=== PATIENT | female | born 1945 | race Hispanic/Latino ===

== ENCOUNTER 2019-11-11 10:36 | Outpatient (CLI) | payer MEDICARE ==
--- NOTE | 2019-11-11 13:11 | MMO ---
Bilateral MAMMO Bilat Screen [facility]. CLINICAL HISTORY: Patient is 74 years old and is seen for screening. The patient has no family history of breast cancer. The patient has no personal history of cancer. VIEWS: The views performed were: bilateral craniocaudal with tomosynthesis and bilateral mediolateral oblique with tomosynthesis. FILMS COMPARED: The present examination has been compared to prior imaging studies performed at [facility] on 01/22/2008, 01/23/2009, 02/21/2010 and 06/30/2018. This study has been interpreted with the assistance of computer-aided detection. MAMMOGRAM FINDINGS: There are scattered fibroglandular densities. There are stable benign appearing calcifications seen in both breasts. There are no suspicious masses, suspicious calcifications, or new areas of architectural distortion. IMPRESSION: THERE IS NO MAMMOGRAPHIC EVIDENCE OF MALIGNANCY. A ROUTINE FOLLOW-UP MAMMOGRAM IN 1 YEAR IS RECOMMENDED. THE RESULTS OF THIS EXAM WERE SENT TO THE PATIENT. ACR BI-RADS Category 2 - Benign finding MAMMOGRAPHY NOTE: 1. A negative mammogram report should not delay a biopsy if a dominant of clinically suspicious mass is present. 2. Approximately 10% to 15% of breast cancers are not detected by mammography. 3. Adenosis and dense breasts may obscure an underlying neoplasm. Reported by: SARA CHOUDHURY MD Electonically Signed: [id number]
--- NOTE | 2019-11-11 14:05 | BD ---
Exam: DEXA Bone Density 11/11/19 INDICATIONS: Postmenopausal screening. Lumbar Spine: BMD (g/cm2) T-SCORE L1 0.669 -2.9 L2 0.713 -2.9 L3 0.736 -3.2 L4 0.804 -2.3 L1-L4 0.732 -2.9 Femoral Neck: 0.513 -3.0 Total Femur: 0.716 -1.9 Impression: Bone mineral density of the lumbar spine and femoral neck both indicate osteoporosis. POS: AGW
== END 2019-11-11 10:37 | disposition home or self-care (01) ==
LOC: BICMAMMO 10:36 → EDUNIT# 11:00
PROVIDERS: ATTEND Family Medicine
DX: Z12.31 Encounter for screening mammogram for malignant neoplasm of breast (principal); Z13.820 Encounter for screening for osteoporosis; Z78.0 Asymptomatic menopausal state; M81.0 Age-related osteoporosis without current pathological fracture
CPT/HCPCS: 77063; 77067; 77080

== ENCOUNTER 2020-12-07 12:42 | Outpatient (CLI) | payer MEDICARE | END 2020-12-07 12:43 | disposition home or self-care (01) | LOC: BICMAMMO 12:42 | PROVIDERS: ATTEND Family Medicine | DX: Z12.31 Encounter for screening mammogram for malignant neoplasm of breast (principal) | CPT/HCPCS: 77063; 77067 ==

== ENCOUNTER 2021-12-05 14:18 | Outpatient (CLI) | payer MEDICARE | END 2021-12-05 14:19 | disposition home or self-care (01) | LOC: ULT 14:18 | PROVIDERS: ATTEND Family Medicine | DX: I27.20 Pulmonary hypertension, unspecified (principal); M79.89 Other specified soft tissue disorders; I08.1 Rheumatic disorders of both mitral and tricuspid valves | CPT/HCPCS: 93306 ==

== ENCOUNTER 2022-11-08 11:45 | Inpatient (IN) | payer MEDICARE ==
[~2022-11-08 11:45] MED LIST: Iopamidol 370 76% 100 ML VIAL ONE
[2022-11-08 11:57] LABS: #Basophils 0.1 thou/uL (0.0-0.2); #Eosinphils 0.3 thou/uL (0.0-0.7); #Monocytes 0.6 thou/uL (0.11-0.59); #Neutrophils 3.9 thou/uL (1.40-6.50); %Basophils 0.7 % (0.0-1.0); %Eosinophils 3.7 % (0.0-10.0); %Lymphocytes 41.8 % (21.0-51.0); %Monocytes 6.8 % (0.0-10.0); %Neutrophils 45.9 % (42.0-75.0); Hemoglobin 11.3 g/dL (12.0-16.0); Mean Corpuscular HGB CONC 32.9 g/dL (32.0-36.0); Mean Corpuscular Hemoglobin 29.4 pg (27.0-31.0); Mean Corpuscular Volume 89.1 fl (78.0-98.0); Mean Platelet Volume 10.9 fL (7.4-10.4); Platelet Count 157 10x3/uL (130-400); RBC Distribution Width 13.2 % (11.5-14.5); Red Blood Cell (RBC) Count 3.85 mill/uL (4.20-5.40); White Blood Cell (WBC) Count 8.5 10x3/uL (4.8-10.8)
[2022-11-08 12:07] LABS: INR-International Normal Ratio 1.2; Prothrombin Time 15.3 sec (12.0-14.7)
[2022-11-08 12:12] LABS: PTT 166.4 sec (22.9-36.1)
[2022-11-08] MEDS ORDERED: Nitroglycerin 50 MG/250 ML BOT 250 ML ONE (12:13)
[2022-11-08 12:14] LABS: ALT (SGPT) 16 U/L (8-55); AST (SGOT) 16 U/L (5-34); Albumin 3.3 g/dL (3.4-4.8); Alkaline Phosphatase 76 U/L (40-110); Anion Gap 13 mmol/L (10-20); BUN (Urea Nitrogen) 13 mg/dL (9.8-20.1); Bilirubin, Total 0.4 mg/dL (0.2-1.2); Calc. Creatinine Clearance 0 mL/min (70-130); Calcium 8.2 mg/dL (7.8-10.44); Carbon Dioxide 20 mmol/L (23-31); Chloride 110 mmol/L (98-107); Estimated GFR 56; Globulin 2.7 g/dL (2.4-3.5); Glucose 226 mg/dL (83-110); Potassium 3.5 mmol/L (3.5-5.1); Sodium 139 mmol/L (136-145)
[2022-11-08] MEDS ORDERED: fentaNYL 50 mcg/mL 1 mL Vial ONE (12:22)
[2022-11-08] MEDS ORDERED: Midazolam HCl 2 mg/2 ml Vial ONE (12:30)
[2022-11-08] MEDS ORDERED: TICAGRELOR 90 MG TABLET ONE (12:30)
[2022-11-08] MEDS ORDERED: Morphine 4 MG/ML VIAL SLOW IVP PRN (13:56)
[2022-11-08] MEDS ORDERED: Nitroglycerin 0.4 MG TAB (25 Tab Bottle) SL PRN (13:56)
[2022-11-08] MEDS ORDERED: Morphine 2 MG/ML VIAL SLOW IVP PRN (13:56)
[2022-11-08] MEDS ORDERED: Sodium Chloride 0.9% 1,000 ML IV SCH (14:00)
[2022-11-08] MEDS ORDERED: Nitroglycerin 50 MG/250 ML BOT 250 ML IVPB SCH (14:30)
[2022-11-08] MEDS ORDERED: Dextrose 50% Abboject 50 ML SYRINGE SLOW IVP PRN (14:46)
[2022-11-08] MEDS ORDERED: Glucagon 1 MG/ML KIT IM PRN (14:46)
[2022-11-08] MEDS ORDERED: Dextrose 5% in Water 1,000 ML IV PRN (14:46)
[2022-11-08] MEDS ORDERED: Carvedilol 3.125 MG TAB PO SCH (16:05)
[2022-11-08] MEDS ORDERED: Carvedilol 6.25 MG TAB PO SCH (16:05)
[2022-11-08 17:45] LABS: Troponin I 0.187 ng/mL (< 0.028)
[2022-11-08] MEDS: Ipratropium/Albuterol 3 ML NEB NEB SCH (18:04)
[2022-11-08] MEDS: Budesonide 0.5 MG/2 ML NEB NEB SCH (18:05)
[2022-11-08] MEDS ORDERED: Ondansetron PF 4 MG/2 ML Vial IVP PRN (19:08)
[2022-11-08 19:53] VITALS: BMI 26.6
[2022-11-08] MEDS: TICAGRELOR 90 MG TABLET PO SCH (20:38)
[2022-11-08] MEDS: Rosuvastatin 20 MG TAB PO SCH (20:38)
[2022-11-08 20:52] LABS: Troponin I 0.373 ng/mL (< 0.028)
[2022-11-09 01:57] LABS: Troponin I 0.716 ng/mL (< 0.028)
[2022-11-09 04:19] LABS: #Eosinphils 0.2 thou/uL (0.0-0.7); #Monocytes 0.5 thou/uL (0.11-0.59); #Neutrophils 4.3 thou/uL (1.40-6.50); %Basophils 0.5 % (0.0-1.0); %Lymphocytes 23.9 % (21.0-51.0); %Monocytes 7.3 % (0.0-10.0); %Neutrophils 64.5 % (42.0-75.0); Hemoglobin 10.7 g/dL (12.0-16.0); Mean Corpuscular HGB CONC 33.9 g/dL (32.0-36.0); Mean Corpuscular Hemoglobin 29.4 pg (27.0-31.0); Mean Corpuscular Volume 86.8 fl (78.0-98.0); Mean Platelet Volume 11.1 fL (7.4-10.4); Platelet Count 153 10x3/uL (130-400); RBC Distribution Width 13.5 % (11.5-14.5); Red Blood Cell (RBC) Count 3.64 mill/uL (4.20-5.40); White Blood Cell (WBC) Count 6.6 10x3/uL (4.8-10.8)
[2022-11-09 04:46] LABS: ALT (SGPT) 25 U/L (8-55); AST (SGOT) 36 U/L (5-34); Albumin 3.4 g/dL (3.4-4.8); Alkaline Phosphatase 76 U/L (40-110); Anion Gap 10 mmol/L (10-20); BUN (Urea Nitrogen) 11 mg/dL (9.8-20.1); Bilirubin, Total 0.4 mg/dL (0.2-1.2); Calc. Creatinine Clearance 69 mL/min (70-130); Calcium 8.4 mg/dL (7.8-10.44); Carbon Dioxide 27 mmol/L (23-31); Cardiac Risk 4.9 (Less than 4.5); Chloride 106 mmol/L (98-107); Estimated GFR 77; Globulin 2.6 g/dL (2.4-3.5); Glucose 156 mg/dL (83-110); Potassium 3.9 mmol/L (3.5-5.1); Sodium 139 mmol/L (136-145)
[2022-11-09] MEDS: Budesonide 0.5 MG/2 ML NEB NEB SCH ×2 (07:37→18:14)
[2022-11-09] MEDS: Ipratropium/Albuterol 3 ML NEB NEB SCH ×5 (07:39→23:47)
[2022-11-09] MEDS: Carvedilol 3.125 MG TAB PO SCH ×2 (08:11→16:30)
[2022-11-09] MEDS: Montelukast Sodium 10 mg Tablet PO SCH (08:11)
[2022-11-09] MEDS: TICAGRELOR 90 MG TABLET PO SCH ×2 (08:12→20:22)
[2022-11-09] MEDS: HumaLOG 300 UNITS/3 ML VIAL SC PRN ×3 (10:34→21:26)
[2022-11-09] MEDS ORDERED: hydrALAZINE 20 MG/ML VIAL SLOW IVP PRN (14:19)
[2022-11-09] MEDS ORDERED: Lisinopril 5 MG TAB PO SCH (14:30)
[2022-11-09] MEDS ORDERED: Loratadine 10 MG TAB PO SCH (15:45)
[2022-11-09] MEDS: Lisinopril 5 MG TAB PO SCH (20:21)
[2022-11-09] MEDS: Rosuvastatin 20 MG TAB PO SCH (20:21)
[2022-11-10 04:26] LABS: #Eosinphils 0.2 thou/uL (0.0-0.7); #Monocytes 0.5 thou/uL (0.11-0.59); #Neutrophils 4.2 thou/uL (1.40-6.50); %Basophils 0.3 % (0.0-1.0); %Eosinophils 3.5 % (0.0-10.0); %Lymphocytes 25.4 % (21.0-51.0); %Monocytes 7.5 % (0.0-10.0); %Neutrophils 62.4 % (42.0-75.0); Hemoglobin 10.3 g/dL (12.0-16.0); Mean Corpuscular HGB CONC 33.3 g/dL (32.0-36.0); Mean Corpuscular Hemoglobin 28.9 pg (27.0-31.0); Mean Corpuscular Volume 86.6 fl (78.0-98.0); Mean Platelet Volume 11.2 fL (7.4-10.4); Platelet Count 141 10x3/uL (130-400); RBC Distribution Width 13.3 % (11.5-14.5); Red Blood Cell (RBC) Count 3.57 mill/uL (4.20-5.40); White Blood Cell (WBC) Count 6.7 10x3/uL (4.8-10.8)
[2022-11-10 04:51] LABS: Anion Gap 11 mmol/L (10-20); BUN (Urea Nitrogen) 10 mg/dL (9.8-20.1); Calc. Creatinine Clearance 59 mL/min (70-130); Calcium 8.8 mg/dL (7.8-10.44); Carbon Dioxide 26 mmol/L (23-31); Chloride 107 mmol/L (98-107); Estimated GFR 71; Glucose 114 mg/dL (83-110); Potassium 3.7 mmol/L (3.5-5.1); Sodium 140 mmol/L (136-145)
[2022-11-10] MEDS: Ipratropium/Albuterol 3 ML NEB NEB SCH ×4 (07:27→23:52)
[2022-11-10] MEDS: Budesonide 0.5 MG/2 ML NEB NEB SCH ×2 (07:27→18:23)
[2022-11-10] MEDS: Carvedilol 3.125 MG TAB PO SCH (08:13)
[2022-11-10] MEDS: Loratadine 10 MG TAB PO SCH (09:51)
[2022-11-10] MEDS: TICAGRELOR 90 MG TABLET PO SCH ×2 (09:51→20:50)
[2022-11-10] MEDS: Lisinopril 5 MG TAB PO SCH (09:52)
[2022-11-10] MEDS: Montelukast Sodium 10 mg Tablet PO SCH (09:52)
[2022-11-10] MEDS: HumaLOG 300 UNITS/3 ML VIAL SC PRN ×2 (11:47→19:33)
[2022-11-10] MEDS: Carvedilol 6.25 MG TAB PO SCH (17:18)
[2022-11-10] MEDS: Apixaban 5 MG TAB PO SCH (20:50)
[2022-11-10] MEDS: Rosuvastatin 20 MG TAB PO SCH (20:50)
[2022-11-10] MEDS: Lisinopril 10 MG TAB PO SCH (20:50)
[2022-11-11 04:31] LABS: #Eosinphils 0.3 thou/uL (0.0-0.7); #Monocytes 0.5 thou/uL (0.11-0.59); #Neutrophils 4.6 thou/uL (1.40-6.50); %Basophils 0.5 % (0.0-1.0); %Eosinophils 4.6 % (0.0-10.0); %Lymphocytes 24.3 % (21.0-51.0); %Monocytes 7.2 % (0.0-10.0); %Neutrophils 62.2 % (42.0-75.0); Hemoglobin 10.5 g/dL (12.0-16.0); Mean Corpuscular HGB CONC 33.7 g/dL (32.0-36.0); Mean Corpuscular Hemoglobin 29.5 pg (27.0-31.0); Mean Corpuscular Volume 87.6 fl (78.0-98.0); Mean Platelet Volume 10.9 fL (7.4-10.4); Platelet Count 146 10x3/uL (130-400); RBC Distribution Width 13.4 % (11.5-14.5); Red Blood Cell (RBC) Count 3.56 mill/uL (4.20-5.40); White Blood Cell (WBC) Count 7.4 10x3/uL (4.8-10.8)
[2022-11-11 05:15] LABS: Anion Gap 13 mmol/L (10-20); BUN (Urea Nitrogen) 14 mg/dL (9.8-20.1); Calc. Creatinine Clearance 58 mL/min (70-130); Carbon Dioxide 24 mmol/L (23-31); Chloride 106 mmol/L (98-107); Estimated GFR 71; Glucose 142 mg/dL (83-110); Potassium 3.8 mmol/L (3.5-5.1); Sodium 139 mmol/L (136-145)
[2022-11-11] MEDS: Ipratropium/Albuterol 3 ML NEB NEB SCH ×4 (07:21→23:50)
[2022-11-11] MEDS: Budesonide 0.5 MG/2 ML NEB NEB SCH ×2 (07:23→18:22)
[2022-11-11] MEDS: Carvedilol 6.25 MG TAB PO SCH ×2 (08:05→16:37)
[2022-11-11] MEDS: Lisinopril 10 MG TAB PO SCH ×2 (09:13→21:03)
[2022-11-11] MEDS: TICAGRELOR 90 MG TABLET PO SCH ×2 (09:13→21:03)
[2022-11-11] MEDS: Loratadine 10 MG TAB PO SCH (09:13)
[2022-11-11] MEDS: Montelukast Sodium 10 mg Tablet PO SCH (09:14)
[2022-11-11] MEDS: Apixaban 5 MG TAB PO SCH ×2 (09:14→21:03)
[2022-11-11] MEDS: HumaLOG 300 UNITS/3 ML VIAL SC PRN ×2 (13:40→18:13)
[2022-11-11 16:39] VITALS: BP 127/66
[2022-11-11] MEDS: Rosuvastatin 20 MG TAB PO SCH (21:03)
[2022-11-12 04:02] LABS: #Basophils 0.1 thou/uL (0.0-0.2); #Eosinphils 0.4 thou/uL (0.0-0.7); #Monocytes 0.5 thou/uL (0.11-0.59); #Neutrophils 4.6 thou/uL (1.40-6.50); %Basophils 0.7 % (0.0-1.0); %Lymphocytes 23.6 % (21.0-51.0); %Monocytes 6.5 % (0.0-10.0); %Neutrophils 62.8 % (42.0-75.0); Hemoglobin 9.9 g/dL (12.0-16.0); Mean Corpuscular HGB CONC 32.8 g/dL (32.0-36.0); Mean Corpuscular Hemoglobin 28.8 pg (27.0-31.0); Mean Corpuscular Volume 87.8 fl (78.0-98.0); Mean Platelet Volume 11.2 fL (7.4-10.4); Platelet Count 144 10x3/uL (130-400); RBC Distribution Width 13.5 % (11.5-14.5); Red Blood Cell (RBC) Count 3.44 mill/uL (4.20-5.40); White Blood Cell (WBC) Count 7.4 10x3/uL (4.8-10.8)
[2022-11-12 04:27] LABS: Anion Gap 11 mmol/L (10-20); BUN (Urea Nitrogen) 17 mg/dL (9.8-20.1); Calc. Creatinine Clearance 55 mL/min (70-130); Calcium 8.9 mg/dL (7.8-10.44); Carbon Dioxide 26 mmol/L (23-31); Chloride 107 mmol/L (98-107); Estimated GFR 65; Glucose 205 mg/dL (83-110); Potassium 3.7 mmol/L (3.5-5.1); Sodium 140 mmol/L (136-145)
[2022-11-12] MEDS: HumaLOG 300 UNITS/3 ML VIAL SC PRN (06:30)
[2022-11-12] MEDS: Lisinopril 10 MG TAB PO SCH (07:22)
[2022-11-12] MEDS: Apixaban 5 MG TAB PO SCH (07:23)
[2022-11-12] MEDS: Montelukast Sodium 10 mg Tablet PO SCH (07:23)
[2022-11-12] MEDS: Loratadine 10 MG TAB PO SCH (07:23)
[2022-11-12] MEDS: Carvedilol 6.25 MG TAB PO SCH (07:23)
[2022-11-12] MEDS: TICAGRELOR 90 MG TABLET PO SCH (07:24)
[2022-11-12] MEDS: Ipratropium/Albuterol 3 ML NEB NEB SCH (07:38)
[2022-11-12] MEDS: Budesonide 0.5 MG/2 ML NEB NEB SCH (07:38)
[2022-11-12 09:09] VITALS: TEMP 98.3
== END 2022-11-12 09:59 | disposition home or self-care (01) | DRG 247 ==
LOC: ERS 11:45 → CCL 11:51 → CCU 14:09
PROVIDERS: ADMIT Internal Medicine; ATTEND Internal Medicine Cardiovascular Disease
PROC: 027135Z Dilation of Coronary Artery, Two Arteries with Two Drug-eluting Intraluminal Devices, Percutaneous Approach (ICD-10-PCS; principal; 2022-11-08)
PROC: 4A023N7 Measurement of Cardiac Sampling and Pressure, Left Heart, Percutaneous Approach (ICD-10-PCS; 2022-11-08)
PROC: B2151ZZ Fluoroscopy of Left Heart using Low Osmolar Contrast (ICD-10-PCS; 2022-11-08)
PROC: B2111ZZ Fluoroscopy of Multiple Coronary Arteries using Low Osmolar Contrast (ICD-10-PCS; 2022-11-08)
DX: I21.09 ST elevation (STEMI) myocardial infarction involving other coronary artery of anterior wall (principal); I21.19 ST elevation (STEMI) myocardial infarction involving other coronary artery of inferior wall; E66.9 Obesity, unspecified; J45.909 Unspecified asthma, uncomplicated; I25.10 Atherosclerotic heart disease of native coronary artery without angina pectoris; E11.65 Type 2 diabetes mellitus with hyperglycemia; K21.9 Gastro-esophageal reflux disease without esophagitis; E78.00 Pure hypercholesterolemia, unspecified; G47.33 Obstructive sleep apnea (adult) (pediatric); R06.89 Other abnormalities of breathing; Z91.199 Patient's noncompliance with other medical treatment and regimen due to unspecified reason; Z68.24 Body mass index [BMI] 24.0-24.9, adult; Z88.8 Allergy status to other drugs, medicaments and biological substances; Z88.6 Allergy status to analgesic agent; Z88.0 Allergy status to penicillin; Z91.013 Allergy to seafood
CPT/HCPCS: 36415; 36416; 80048; 80053; 80061; 84484; 85025; 85347; 85610; 85730; 92928; 92929; 93005; 93010; 93306; 93458; 93798; 94640; 94760; 96374; 99152; 99153; C1725; C1769; C1874; C1887; C9600; C9601; J1815; J2250; J2270; J2272; J2405; J3010; J7050; J7620; J7626; Q9967

== ENCOUNTER 2023-03-28 10:13 | Observation (INO) | payer MEDICARE ==
[2023-03-28] MEDS ORDERED: Iopamidol-370 76% 500 ML MDV (1 ML CHARGE) ONE (10:19)
[2023-03-28 10:54] LABS: #Eosinphils 0.2 thou/uL (0.0-0.7); #Monocytes 0.4 thou/uL (0.11-0.59); %Basophils 0.5 % (0.0-1.0); %Eosinophils 4.2 % (0.0-10.0); %Monocytes 6.4 % (0.0-10.0); %Neutrophils 54.7 % (42.0-75.0); Hematocrit 41.2 % (36.0-47.0); Hemoglobin 13.6 g/dL (12.0-16.0); Mean Corpuscular Hemoglobin 27.5 pg (27.0-31.0); Mean Corpuscular Volume 83.2 fl (78.0-98.0); Mean Platelet Volume 11.2 fL (7.4-10.4); Platelet Count 130 10x3/uL (130-400); Red Blood Cell (RBC) Count 4.95 mill/uL (4.20-5.40); White Blood Cell (WBC) Count 5.5 10x3/uL (4.8-10.8)
[2023-03-28 11:21] LABS: CellaVision Operator ID LAB.GE; Platelet Adequacy Comment Platelets Normal; Polychromasia SLIGHT = 2-3 cells HPF (0-2)
[2023-03-28 11:26] LABS: Troponin I Less than 0.010 ng/mL (< 0.028)
[2023-03-28 11:28] LABS: ALT (SGPT) 16 U/L (8-55); AST (SGOT) 19 U/L (5-34); Albumin 4.6 g/dL (3.4-4.8); Alkaline Phosphatase 104 U/L (40-110); Anion Gap 13 mmol/L (10-20); BUN (Urea Nitrogen) 15 mg/dL (9.8-20.1); Bilirubin, Total 0.5 mg/dL (0.2-1.2); Calc. Creatinine Clearance 0 mL/min (70-130); Calcium 9.7 mg/dL (7.8-10.44); Carbon Dioxide 27 mmol/L (23-31); Chloride 104 mmol/L (98-107); Estimated GFR 70; Globulin 2.8 g/dL (2.4-3.5); Glucose 210 mg/dL (83-110); Lipase 5 U/L (8-78); Protein, Total 7.4 g/dL (5.8-8.1); Sodium 140 mmol/L (136-145)
[2023-03-28] MEDS ORDERED: hydrALAZINE 20 MG/ML VIAL ONE (11:33)
[2023-03-28] MEDS ORDERED: Nitroglycerin 2% Ointment 1 INCH/1 GM Packet ONE (11:34)
[2023-03-28 12:44] LABS: Bacteria/HPF None Seen HPF (None Seen); Bilirubin Negative (Negative); Blood, Urine Negative (Negative); CAUTI Indications for Culture Dysuria,urgency,freq; Clarity Clear (Clear); Glucose, Urine (Dipstick) Normal (Negative); Ketone, Urine Negative (Negative); Leukocyte Negative Leu/uL (Negative); Nitrite Negative (Negative); Protein, Urine (Dipstick) Negative (Neg-Trace); RBC/HPF 0-3 HPF (0-3); Specific Gravity, Urine 1.007 (1.002-1.036); Squamous Epithelial 0-3 HPF (0-3); Urobilinogen Normal mg/dL (Less than 2); WBC/HPF 0-3 HPF (0-3)
[2023-03-28 12:46] LABS: Urine Culture Reflex No No
[2023-03-28] MEDS ORDERED: Ondansetron PF 4 MG/2 ML Vial ONE (13:00)
[2023-03-28] MEDS ORDERED: Clopidogrel Bisulfate 75 MG TAB ONE (13:36)
[2023-03-28 14:09] LABS: Magnesium 2.1 mg/dL (1.6-2.6)
[2023-03-28] MEDS ORDERED: Ondansetron ODT 4 MG TAB PO PRN (14:09)
[2023-03-28] MEDS ORDERED: Ondansetron PF 4 MG/2 ML Vial IVP PRN (14:09)
[2023-03-28 14:14] LABS: Troponin I Less than 0.010 ng/mL (< 0.028)
[2023-03-28] MEDS ORDERED: Montelukast Sodium 10 mg Tablet PO PRN (14:22)
[2023-03-28] MEDS ORDERED: HumaLOG 300 UNITS/3 ML VIAL SC PRN ×2 (14:30)
[2023-03-28] MEDS ORDERED: Glucagon 1 MG/ML KIT IM PRN (14:30)
[2023-03-28] MEDS ORDERED: FLUTICASONE NASAL SCH (14:30)
[2023-03-28] MEDS ORDERED: [UNRECOGNIZED DRUG - OTHER] NASAL SCH (14:30)
[2023-03-28] MEDS ORDERED: Dextrose 5% in Water 1,000 ML IV PRN (14:30)
[2023-03-28] MEDS ORDERED: Dextrose 50% Abboject 50 ML SYRINGE SLOW IVP PRN (14:30)
[2023-03-28] MEDS ORDERED: AZELASTINE NASAL SCH (14:30)
[2023-03-28] MEDS ORDERED: Albuterol 200 PUFF (6.7GM INHALER) INH PRN (15:15)
[2023-03-28] MEDS: Carvedilol 6.25 MG TAB PO SCH (17:19)
[2023-03-28] MEDS: Morphine 2 MG/ML VIAL SLOW IVP PRN (17:52)
[2023-03-28 17:55] LABS: Troponin I Less than 0.010 ng/mL (< 0.028)
[2023-03-28] MEDS: Budesonide 0.5 MG/2 ML NEB NEB SCH (19:04)
[2023-03-28] MEDS: Mometasone 100 MCG/Formoterol 5 MCG 120 PUFF INHALER INH SCH (19:05)
[2023-03-28] MEDS: Mag-Al 1200 mg/1200 mg/30 ML UDCUP PO PRN (19:24)
[2023-03-28] MEDS ORDERED: Rosuvastatin 20 MG TAB PO SCH (21:00)
[2023-03-28] MEDS ORDERED: Gabapentin 100 MG CAP PO SCH (21:00)
[2023-03-28] MEDS: hydrALAZINE 25 MG TAB PO SCH (21:24)
[2023-03-28] MEDS: Fluticasone Propionate Nasal Spray 16 gm Bottle NASAL SCH (21:26)
[2023-03-28] MEDS: Azelastine 137 MCG/NASAL Spray 30 ML NS SCH (21:26)
[2023-03-29 04:36] LABS: #Eosinphils 0.1 thou/uL (0.0-0.7); #Monocytes 0.4 thou/uL (0.11-0.59); #Neutrophils 3.7 thou/uL (1.40-6.50); %Basophils 0.5 % (0.0-1.0); %Eosinophils 1.5 % (0.0-10.0); %Lymphocytes 30.2 % (21.0-51.0); %Neutrophils 61.6 % (42.0-75.0); Hematocrit 39.3 % (36.0-47.0); Hemoglobin 12.7 g/dL (12.0-16.0); Mean Corpuscular HGB CONC 32.3 g/dL (32.0-36.0); Mean Corpuscular Hemoglobin 27.2 pg (27.0-31.0); Mean Corpuscular Volume 84.2 fl (78.0-98.0); Mean Platelet Volume 12.2 fL (7.4-10.4); Platelet Count 140 10x3/uL (130-400); RBC Distribution Width 14.4 % (11.5-14.5); Red Blood Cell (RBC) Count 4.67 mill/uL (4.20-5.40)
[2023-03-29 05:07] LABS: Anion Gap 12 mmol/L (10-20); BUN (Urea Nitrogen) 16 mg/dL (9.8-20.1); Calc. Creatinine Clearance 0 mL/min (70-130); Calcium 9.4 mg/dL (7.8-10.44); Carbon Dioxide 27 mmol/L (23-31); Cardiac Risk 3.5 (Less than 4.5); Chloride 104 mmol/L (98-107); Cholesterol 142 mg/dl (< 200 Desired); Estimated GFR 73; Glucose 123 mg/dL (83-110); HDL Cholesterol 41 mg/dL (>60 Neg Risk); LDL Cholesterol, Calculated 70 mg/dL; Potassium 3.5 mmol/L (3.5-5.1); Sodium 139 mmol/L (136-145); Triglycerides 153 mg/dL (Less than 150)
[2023-03-29] MEDS: Morphine 2 MG/ML VIAL SLOW IVP PRN (06:20)
[2023-03-29] MEDS: Mometasone 100 MCG/Formoterol 5 MCG 120 PUFF INHALER INH SCH (06:41)
[2023-03-29] MEDS: Mag-Al 1200 mg/1200 mg/30 ML UDCUP PO PRN (06:41)
[2023-03-29] MEDS: Budesonide 0.5 MG/2 ML NEB NEB SCH (06:52)
[2023-03-29] MEDS: Azelastine 137 MCG/NASAL Spray 30 ML NS SCH (08:50)
[2023-03-29] MEDS: Fluticasone Propionate Nasal Spray 16 gm Bottle NASAL SCH (08:50)
[2023-03-29] MEDS: hydrALAZINE 25 MG TAB PO SCH (08:52)
[2023-03-29] MEDS: Carvedilol 6.25 MG TAB PO SCH (08:52)
[2023-03-29] MEDS ORDERED: Aspirin Chewable 81 MG TAB PO SCH (09:00)
[2023-03-29] MEDS ORDERED: Prasugrel 10 MG TAB PO SCH (09:00)
[2023-03-29] MEDS ORDERED: Losartan 25 MG TAB PO SCH (09:00)
[2023-03-29] MEDS ORDERED: Loratadine 10 MG TAB PO SCH (09:00)
[2023-03-29 11:19] VITALS: BP 116/53; TEMP 98.5
[2023-03-29] MEDS ORDERED: Polyethylene Glycol 3350 17 GM Packet PO SCH (11:45)
[2023-03-29] MEDS ORDERED: Docusate 100 MG CAP PO SCH (11:45)
[2023-03-31] MEDS ORDERED: FLU VACC QS2023(65UP)/MF59C/PF 60 MCG/0.5 ML SYRINGE IM ONE (20:00)
== END 2023-03-29 12:45 | disposition home or self-care (01) ==
LOC: ERS 10:13 → 2SW 13:26
PROVIDERS: ADMIT Internal Medicine; ATTEND Internal Medicine
DX: R07.2 Precordial pain (principal); I21.02 ST elevation (STEMI) myocardial infarction involving left anterior descending coronary artery; J45.909 Unspecified asthma, uncomplicated; I10 Essential (primary) hypertension; E78.00 Pure hypercholesterolemia, unspecified; I25.2 Old myocardial infarction; E78.5 Hyperlipidemia, unspecified; R07.89 Other chest pain; K21.9 Gastro-esophageal reflux disease without esophagitis; E11.9 Type 2 diabetes mellitus without complications; Z88.6 Allergy status to analgesic agent; Z88.0 Allergy status to penicillin; Z91.013 Allergy to seafood; Z88.8 Allergy status to other drugs, medicaments and biological substances; Z88.5 Allergy status to narcotic agent; Z79.84 Long term (current) use of oral hypoglycemic drugs; Z79.82 Long term (current) use of aspirin; Z79.899 Other long term (current) drug therapy; Z79.01 Long term (current) use of anticoagulants
CPT/HCPCS: 71275; 74018; 74174; 80048; 80053; 80061; 81001; 82962 ×2; 83690; 83735; 84484 ×2; 85025 ×2; 93005; 94640 ×2; 94760 ×2; 96374; 96375 ×2; 96376; 99285; G0378 ×3; J0360; 36415; 36416; J1650; J1815; J2272; J2405; J7626; Q0162; Q9967

== ENCOUNTER 2023-08-04 09:11 | Outpatient (CLI) | payer MEDICARE | END 2023-08-04 09:12 | disposition home or self-care (01) | LOC: BICMAMMO 09:11 | PROVIDERS: ATTEND Family Medicine | DX: Z12.31 Encounter for screening mammogram for malignant neoplasm of breast (principal); M81.0 Age-related osteoporosis without current pathological fracture | CPT/HCPCS: 77063; 77067; 77080 ==

== ENCOUNTER 2024-07-12 13:10 | Outpatient (CLI) | payer MEDICARE | END 2024-07-12 13:11 | disposition home or self-care (01) | LOC: SCSMRI 13:10 | PROVIDERS: ATTEND Family Medicine | DX: R20.0 Anesthesia of skin (principal); H53.2 Diplopia; R51.9 Headache, unspecified; J34.89 Other specified disorders of nose and nasal sinuses | CPT/HCPCS: 36415; 70553; 76376; 82565 ==